=== PATIENT | female | born 1950 | race Caucasian/White ===

== ENCOUNTER → 2016-10-20 | Outpatient (CLI) | payer OTHER ==
[~2016-10-20] MED LIST: ASPI325T4 PO; CHERRY PACK PO; CLB200 PO; LRT5 PO; OXYSR10 PO; OXYSR20 PO; VALA1TAB2 PO
--- NOTE | 2016-10-20 13:54 | MAMMOGRAPHY REPORT ---
BILATERAL DIGITAL SCREENING MAMMOGRAM WITH CAD: 10/20/2016 CLINICAL HISTORY: Routine screening. Patient has no complaints. TECHNIQUE: Current study was also evaluated with a Computer Aided Detection (CAD) system. Bilateral CC and MLO views were obtained. COMPARISON: Comparison is made to exams dated: 10/19/2015 mammogram, 10/16/2014 mammogram, 10/01/2013 lilly mogram, 09/24/2013 mammogram, 09/23/2012 mammogram, and 09/20/2011 mammogram - [facility] er. BREAST COMPOSITION: There are scattered areas of fibroglandular density in both breasts. FINDINGS: No suspicious masses, calcifications, or areas of architectural distortion are noted in ei ther breast. There has been no significant interval change compared to prior exams. A linear scar marker denotes a scar on the right medial breast. IMPRESSION: ACR BI-RADS CATEGORY 2: BENIGN There is no mammographic evidence of malignancy. A 1 year screening mammogram is recommended. The pa tient will receive written notification of the results. Approximately 10% of breast cancers are not detected with mammography. A negative mammographic report should not delay biopsy if a clinically suggestive mass is present. Kassandra Valle M.D. ah/:10/20/2016 09:16:27 Industrial Machine Assembler: Autumn GUZMAN(R)(M), [facility] letter sent: Normal 1/2 BI-RADS Code: ACR BI-RADS Category 2: Benign
== END | disposition home or self-care (01) ==
LOC: C.MAMM 08:37
PROVIDERS: ATTEND Obstetrics & Gynecology
DX: Z12.31 Encounter for screening mammogram for malignant neoplasm of breast (principal)

== ENCOUNTER → 2017-05-24 | Outpatient (CLI) | payer OTHER | END | disposition home or self-care (01) | LOC: C.MAMM 07:56 | DX: M85.851 Other specified disorders of bone density and structure, right thigh (principal) ==

== ENCOUNTER → 2017-05-24 | Outpatient (CLI) | payer OTHER ==
--- NOTE | 2017-05-24 14:39 | MAMMOGRAPHY REPORT ---
UNILATERAL RIGHT DIGITAL DIAGNOSTIC MAMMOGRAM TOMOSYNTHESIS WITH CAD AND TARGETED RIGHT ULTRASOUND: CLINICAL HISTORY: The patient reports intermittent right axillary pain for approximately 3 weeks, whi ch is most noticeable when lifting her arm. She also reports a possible tingling sensation in her ri ght breast. She denies any palpable lumps. TECHNIQUE: Breast tomosynthesis in addition to standard 2D mammography was performed. Current study was also evaluated with a Computer Aided Detection (CAD) system. Right CC and MLO 2-D and tomosynthe sis images were obtained. COMPARISON: Comparison is made to exams dated: 10/20/2016 mammogram, 10/19/2015 mammogram, 10/16/2014 mamm ogram, 10/01/2013 ultrasound, 10/01/2013 mammogram, and 09/24/2013 mammogram - [facility]. BREAST COMPOSITION: There are scattered areas of fibroglandular density in the right breast. FINDINGS: A square marker whaley the site of intermittent pain in the right axilla. Another square ma rker whaley an area of possible tingling in the right upper outer anterior breast. There are no suspi cious masses, calcifications, or areas of architectural distortion seen mammographically. There has been no significant interval change compared to prior exams. Targeted ultrasound was performed of the right axillary region in the region of intermittent pain poi nted out by the patient. There are no suspicious masses or other suspicious sonographic abnormality seen in this region. Incidentally noted are morphologically normal right axillary lymph nodes, witho ut evidence of axillary adenopathy. Ultrasound was also performed of the area of possible tingling i n the right breast pointed out by the patient in the right periareolar region. Sonographically onel l tissue is also seen in this region, without evidence of a mass or other suspicious sonographic abno rmality. IMPRESSION: ACR BI-RADS CATEGORY 2: BENIGN, TARGETED ULTRASOUND ACR BI-RADS CATEGORY 2: BENIGN No suspicious mammographic or sonographic abnormality to explain intermittent right axillary pain as well as tingling sensation in the right breast. There is no mammographic or targeted sonographic devin dence of malignancy. Recommend clinical follow-up for right breast/axillary symptoms, and recommend routine bilateral screening mammograms which are due October 2017. The patient has been verbally notified of the results. Approximately 10% of breast cancers are not detected with mammography. A negative mammographic report should not delay biopsy if a clinically suggestive mass is present. Kassandra Valle M.D. ah/:05/24/2017 10:37:35 Bleaching Machine Operator: Gabriela Ly [facility] letter sent: Normal 1/2 BI-RADS Code: ACR BI-RADS Category 2: Benign Ultrasound BI-RADS: ACR BI-RADS Category 2: Benign
== END | disposition home or self-care (01) ==
LOC: C.MAMM 10:11
DX: N63.10 Unspecified lump in the right breast, unspecified quadrant (principal); N64.4 Mastodynia